=== PATIENT | female | born 1955 | race Caucasian/White ===

== ENCOUNTER 2022-02-02 12:47 | Outpatient (CLI) | payer MEDICARE, BC | END 2022-02-02 12:48 | disposition home or self-care (01) | LOC: CSHLAB 12:47 | PROVIDERS: ATTEND Internal Medicine Pulmonary Disease | DX: Z20.822 Contact with and (suspected) exposure to COVID-19 (principal) | CPT/HCPCS: 87811 ==

== ENCOUNTER 2022-02-05 08:06 | Outpatient (CLI) | payer MEDICARE, BC ==
[2022-02-05] MEDS ORDERED: Iopamidol 370 76% 100 ML VIAL ONE (13:54)
== END 2022-02-05 08:07 | disposition home or self-care (01) ==
LOC: CSHCT 08:06
PROVIDERS: ATTEND Internal Medicine Pulmonary Disease
DX: I26.09 Other pulmonary embolism with acute cor pulmonale (principal); R06.09 Other forms of dyspnea
CPT/HCPCS: 71275; 94060; 94729; 94760; Q9967

== ENCOUNTER 2023-09-18 18:51 | Inpatient (IN) | payer MEDICARE, BC ==
[2023-09-18] MEDS ORDERED: Acetaminophen 325 MG TAB PO PRN (20:11)
[2023-09-18] MEDS ORDERED: Senokot S 8.6-50 MG TAB PO PRN (20:11)
[2023-09-18] MEDS ORDERED: Calcium Carbonate 500 MG ChewTAB PO PRN (20:11)
[2023-09-18] MEDS ORDERED: Guaifenesin DM 100-10/5 ML UDCUP PO PRN (20:11)
[2023-09-18] MEDS ORDERED: Ondansetron PF 4 MG/2 ML Vial IVP PRN (20:11)
[2023-09-18] MEDS ORDERED: HYDROcodone/Acetaminophen 5/325 mg Tablet PO PRN (20:11)
[2023-09-18 20:22] LABS: #Eosinphils 0.1 10x3/uL (0.0-0.5); #Monocytes 0.6 10x3/uL (0.0-1.1); #Neutrophils 4.3 10x3/uL (1.5-8.4); %Basophils 0.4 % (0.0-2.0); %Eosinophils 1.7 % (0.0-6.0); %Lymphocytes 29.2 % (18.0-47.0); %Monocytes 8.9 % (0.0-10.0); %Neutrophils 59.4 % (40.0-75.0); Hematocrit 43.7 % (34.9-44.5); Hemoglobin 15.4 g/dL (12.0-15.5); Mean Corpuscular HGB CONC 35.2 g/dL (32.0-36.0); Mean Corpuscular Hemoglobin 32.9 pg (27.0-33.0); Mean Corpuscular Volume 93.4 fl (81.6-98.3); Mean Platelet Volume 10.3 fl (7.4-10.4); Platelet Count 300 10x3/uL (150-450); RBC Distribution Width 13.2 % (11.5-14.5); Red Blood Cell (RBC) Count 4.68 10x6/uL (3.90-5.03); White Blood Cell (WBC) Count 7.2 10x3/uL (3.5-10.5)
[2023-09-18 20:34] LABS: INR-International Normal Ratio 1.1; PTT 42.2 sec (22.0-33.0); Prothrombin Time 11.3 sec (9.5-12.1)
[2023-09-18 20:37] LABS: ALT (SGPT) 13 U/L (8-55); AST (SGOT) 16 U/L (5-34); Albumin 4.3 g/dL (3.4-4.8); Alkaline Phosphatase 74 U/L (40-110); Anion Gap 17 mmol/L (10-20); BUN (Urea Nitrogen) 8 mg/dL (9.8-20.1); Bilirubin, Total 1.6 mg/dL (0.2-1.2); Calc. Creatinine Clearance 0 mL/min (70-130); Calcium 9.7 mg/dL (7.8-10.44); Carbon Dioxide 23 mmol/L (23-31); Chloride 106 mmol/L (98-107); Estimated GFR 73; Glucose 106 mg/dL (80-115); Potassium 3.7 mmol/L (3.5-5.1); Protein, Total 7.3 g/dL (5.8-8.1); Sodium 142 mmol/L (136-145)
[2023-09-18 20:50] LABS: Critical Call Chem Troponin I NUR.AEB @2045; Troponin I 0.392 ng/mL (< 0.028)
[2023-09-18 21:47] VITALS: BMI 48.0
[2023-09-18] MEDS: Ranolazine ER 500 MG TAB PO SCH (22:33)
[2023-09-18] MEDS: Metoprolol Tartrate 25 MG TAB PO SCH (22:34)
[2023-09-19 03:42] LABS: Anion Gap 16 mmol/L (10-20); BUN (Urea Nitrogen) 9 mg/dL (9.8-20.1); Calc. Creatinine Clearance 156 mL/min (70-130); Calcium 9.2 mg/dL (7.8-10.44); Carbon Dioxide 21 mmol/L (23-31); Cardiac Risk 4.6 (Less than 4.5); Chloride 107 mmol/L (98-107); Cholesterol 199 mg/dl (< 200 Desired); Estimated GFR 77; Glucose 102 mg/dL (80-115); HDL Cholesterol 43 mg/dL (>60 Neg Risk); LDL Cholesterol, Calculated 127 mg/dL; Potassium 3.4 mmol/L (3.5-5.1); Sodium 141 mmol/L (136-145); Triglycerides 143 mg/dL (Less than 150)
[2023-09-19 03:46] LABS: Critical Call Chem Troponin I ICU.TD @ 0344; Troponin I 0.292 ng/mL (< 0.028)
[2023-09-19] MEDS: Enoxaparin 30 MG (0.3 mL) SYRINGE SC SCH (05:59)
[2023-09-19] MEDS: Enoxaparin 120 MG/0.8 ML SYRINGE SC SCH (05:59)
[2023-09-19] MEDS: Potassium Chloride 20 MEQ TAB PO SCH (08:16)
[2023-09-19] MEDS: Metoprolol Tartrate 25 MG TAB PO SCH (08:16)
[2023-09-19 13:07] LABS: Hemoglobin A1c 5.1 % (4.0-6.0)
[2023-09-20 04:20] LABS: #Basophils 0.1 10x3/uL (0.0-0.2); #Eosinphils 0.2 10x3/uL (0.0-0.5); #Monocytes 0.8 10x3/uL (0.0-1.1); %Basophils 0.8 % (0.0-2.0); %Eosinophils 3.5 % (0.0-6.0); %Lymphocytes 35.2 % (18.0-47.0); %Monocytes 12.3 % (0.0-10.0); %Neutrophils 47.9 % (40.0-75.0); Hematocrit 40.6 % (34.9-44.5); Hemoglobin 13.8 g/dL (12.0-15.5); Mean Corpuscular Hemoglobin 32.2 pg (27.0-33.0); Mean Corpuscular Volume 94.6 fl (81.6-98.3); Mean Platelet Volume 10.4 fl (7.4-10.4); Platelet Count 292 10x3/uL (150-450); RBC Distribution Width 13.3 % (11.5-14.5); Red Blood Cell (RBC) Count 4.29 10x6/uL (3.90-5.03); White Blood Cell (WBC) Count 6.3 10x3/uL (3.5-10.5)
[2023-09-20 04:31] LABS: Anion Gap 15 mmol/L (10-20); BUN (Urea Nitrogen) 10 mg/dL (9.8-20.1); Calc. Creatinine Clearance 148 mL/min (70-130); Calcium 9.1 mg/dL (7.8-10.44); Carbon Dioxide 23 mmol/L (23-31); Chloride 108 mmol/L (98-107); Estimated GFR 73; Glucose 103 mg/dL (80-115); Potassium 3.9 mmol/L (3.5-5.1); Sodium 142 mmol/L (136-145)
[2023-09-21 05:36] LABS: #Eosinphils 0.2 10x3/uL (0.0-0.5); #Monocytes 0.7 10x3/uL (0.0-1.1); #Neutrophils 2.6 10x3/uL (1.5-8.4); %Basophils 0.7 % (0.0-2.0); %Eosinophils 4.2 % (0.0-6.0); %Lymphocytes 37.4 % (18.0-47.0); %Monocytes 12.3 % (0.0-10.0); %Neutrophils 44.9 % (40.0-75.0); Hematocrit 41.1 % (34.9-44.5); Hemoglobin 13.7 g/dL (12.0-15.5); Mean Corpuscular HGB CONC 33.3 g/dL (32.0-36.0); Mean Corpuscular Hemoglobin 31.7 pg (27.0-33.0); Mean Corpuscular Volume 95.1 fl (81.6-98.3); Platelet Count 289 10x3/uL (150-450); RBC Distribution Width 13.2 % (11.5-14.5); Red Blood Cell (RBC) Count 4.32 10x6/uL (3.90-5.03); White Blood Cell (WBC) Count 5.8 10x3/uL (3.5-10.5)
[2023-09-21] MEDS: Sodium Chloride 0.9% 1,000 ML IV SCH (05:50)
[2023-09-21] MEDS ORDERED: Apixaban 5 MG TAB PO SCH (09:00)
[2023-09-21 09:37] LABS: #Eosinphils 0.2 10x3/uL (0.0-0.5); #Monocytes 0.6 10x3/uL (0.0-1.1); #Neutrophils 4.3 10x3/uL (1.5-8.4); %Basophils 0.6 % (0.0-2.0); %Eosinophils 2.6 % (0.0-6.0); %Lymphocytes 21.8 % (18.0-47.0); %Monocytes 9.6 % (0.0-10.0); %Neutrophils 64.9 % (40.0-75.0); Hematocrit 41.9 % (34.9-44.5); Hemoglobin 14.8 g/dL (12.0-15.5); Mean Corpuscular HGB CONC 35.3 g/dL (32.0-36.0); Mean Corpuscular Hemoglobin 33.1 pg (27.0-33.0); Mean Corpuscular Volume 93.7 fl (81.6-98.3); Mean Platelet Volume 10.7 fl (7.4-10.4); Platelet Count 305 10x3/uL (150-450); RBC Distribution Width 13.2 % (11.5-14.5); Red Blood Cell (RBC) Count 4.47 10x6/uL (3.90-5.03); White Blood Cell (WBC) Count 6.6 10x3/uL (3.5-10.5)
[2023-09-21 13:36] LABS: Cardiolipin IgA Ab 4.6 APL-U/mL (<14 Negative); Cardiolipin IgG Ab 0.9 GPL-U/mL (<10 Negative); Cardiolipin IgM Ab 2.2 MPL-U/mL (<10 Negative); EliA APS New Method **** NEW METHOD ****; beta-2-Glycoprotein I IgA Ab 2.4 U/mL (<7 Negative); beta-2-Glycoprotein I IgG Ab 0.9 U/mL (<7 Negative); beta-2-Glycoprotein I IgM Abs 2.9 U/mL (<7 Negative)
[2023-09-21 17:30] LABS: Hematocrit 34.4 % (34.9-44.5); Hemoglobin 14.7 g/dL (12.0-15.5)
[2023-09-21 18:21] LABS: Anion Gap 14 mmol/L (10-20); BUN (Urea Nitrogen) 12 mg/dL (9.8-20.1); Calc. Creatinine Clearance 134 mL/min (70-130); Calcium 9.7 mg/dL (7.8-10.44); Carbon Dioxide 24 mmol/L (23-31); Chloride 104 mmol/L (98-107); Estimated GFR 65; Glucose 107 mg/dL (80-115); Potassium 4.2 mmol/L (3.5-5.1); Sodium 138 mmol/L (136-145)
[2023-09-22 05:50] LABS: #Eosinphils 0.2 10x3/uL (0.0-0.5); #Monocytes 0.7 10x3/uL (0.0-1.1); #Neutrophils 2.5 10x3/uL (1.5-8.4); %Basophils 0.5 % (0.0-2.0); %Eosinophils 2.9 % (0.0-6.0); %Lymphocytes 38.7 % (18.0-47.0); %Monocytes 12.1 % (0.0-10.0); %Neutrophils 45.4 % (40.0-75.0); Hematocrit 35.9 % (34.9-44.5); Hemoglobin 12.1 g/dL (12.0-15.5); Mean Corpuscular HGB CONC 33.7 g/dL (32.0-36.0); Mean Corpuscular Hemoglobin 31.3 pg (27.0-33.0); Mean Corpuscular Volume 92.8 fl (81.6-98.3); Mean Platelet Volume 10.2 fl (7.4-10.4); Platelet Count 278 10x3/uL (150-450); Red Blood Cell (RBC) Count 3.87 10x6/uL (3.90-5.03); White Blood Cell (WBC) Count 5.5 10x3/uL (3.5-10.5)
[2023-09-22 06:07] LABS: ALT (SGPT) 16 U/L (8-55); AST (SGOT) 20 U/L (5-34); Albumin 3.6 g/dL (3.4-4.8); Alkaline Phosphatase 62 U/L (40-110); Anion Gap 15 mmol/L (10-20); BUN (Urea Nitrogen) 10 mg/dL (9.8-20.1); Bilirubin, Total 1.7 mg/dL (0.2-1.2); Calc. Creatinine Clearance 146 mL/min (70-130); Carbon Dioxide 23 mmol/L (23-31); Chloride 106 mmol/L (98-107); Estimated GFR 73; Globulin 2.4 g/dL (2.4-3.5); Glucose 96 mg/dL (80-115); Magnesium 1.9 mg/dL (1.6-2.6); Potassium 3.5 mmol/L (3.5-5.1); Sodium 140 mmol/L (136-145)
[2023-09-22] MEDS: Enoxaparin 30 MG (0.3 mL) SYRINGE SC SCH (09:47)
[2023-09-22] MEDS: Enoxaparin 120 MG/0.8 ML SYRINGE SC SCH (09:49)
[2023-09-22 12:03] VITALS: BP 127/63; TEMP 97.6
[2023-09-24 10:34] LABS: Prothrombin Time 13.4 sec (12.0-14.7)
[2023-09-24 10:35] LABS: PTT 47.8 sec (22.9-36.1)
[2023-09-28] MEDS ORDERED: Apixaban 5 MG TAB PO SCH (09:00)
== END 2023-09-22 18:14 | disposition home or self-care (01) | DRG 175 ==
LOC: CSHERS 18:51 → CSHERHOLD 19:46 → CSHICU 21:31 → CSHTELE 09-19 14:30
PROVIDERS: ADMIT Student in an Organized Health Care Education/Training Program; ATTEND Internal Medicine
DX: I26.99 Other pulmonary embolism without acute cor pulmonale (principal); I21.A1 Myocardial infarction type 2; J96.01 Acute respiratory failure with hypoxia; I25.10 Atherosclerotic heart disease of native coronary artery without angina pectoris; Z68.42 Body mass index [BMI] 45.0-49.9, adult; E66.01 Morbid (severe) obesity due to excess calories; R77.8 Other specified abnormalities of plasma proteins; R73.9 Hyperglycemia, unspecified; K21.9 Gastro-esophageal reflux disease without esophagitis; E87.6 Hypokalemia; Z88.0 Allergy status to penicillin; Z88.8 Allergy status to other drugs, medicaments and biological substances; Z86.16 Personal history of COVID-19; Z90.49 Acquired absence of other specified parts of digestive tract; Z98.890 Other specified postprocedural states; Z90.710 Acquired absence of both cervix and uterus; Z79.82 Long term (current) use of aspirin; Z79.899 Other long term (current) drug therapy; Z85.42 Personal history of malignant neoplasm of other parts of uterus; Z87.891 Personal history of nicotine dependence
CPT/HCPCS: 36415; 80048; 80053; 80061; 81240; 81241; 83036; 83735; 84484; 85025; 85303; 85305; 85598; 85610; 85613; 85730; 86146; 86147; 86850; 86900; 86901; 93005; 93306; 93970; 94760; J1650; J7050

== ENCOUNTER 2025-02-16 09:01 | Outpatient (CLI) | payer MEDICARE, BC | END 2025-02-16 09:02 | disposition home or self-care (01) | LOC: CSHMAMMO 09:01 | PROVIDERS: ATTEND Family Medicine | DX: N64.89 Other specified disorders of breast (principal); N60.02 Solitary cyst of left breast; N63.21 Unspecified lump in the left breast, upper outer quadrant | CPT/HCPCS: 76642; 77065; G0279 ==